=== PATIENT | male | born 1950 | race Caucasian/White ===

== ENCOUNTER → 2016-10-03 | Outpatient (CLI) | payer MEDICARE, MEDICAID ==
[2016-10-03] MEDS: Triamcinolone Acetonide 40 MG/ML 1 ML MDV INJECT STA (11:07)
[2016-10-03] MEDS: Iopamidol 612 MG/ML 100 ML Bottle IVPUSH ONE (11:07)
[2016-10-03] MEDS: Bupivacaine 0.25% 10 ML SDV INJECT STA (11:07)
--- NOTE | 2016-10-05 20:04 | CR ---
EXAMINATION: Fluoro guided left hip injection. HISTORY: Pain FINDINGS: After written informed consent was obtained, under Fluoro guidance, using 1% lidocaine under aseptic conditions a 22-gauge spinal needle was introduced into the right hip joint. Lidocaine flowed easil y suggesting an intra-articular location of the needle. The patient refused contrast for confirmatio n. 40 mg of Kenalog and 3 mL of Marcaine were then injected into the joint. The patient tolerated th e procedure well. IMPRESSION: Successful Fluoro guided left hip joint steroid injection.
== END | disposition home or self-care (01) ==
LOC: MW.DI 10:14
PROVIDERS: ATTEND Orthopaedic Surgery
DX: M25.552 Pain in left hip (principal)
CPT/HCPCS: 20610; 77002; J3301; Q9967

== ENCOUNTER → 2016-10-10 | Outpatient (CLI) | payer MEDICARE, MEDICAID ==
[2016-10-10 15:46] LABS: CHLORIDE,CL 97 mmol/L (98-110); SODIUM,NA 138 mmol/L (136-146)
== END ==
LOC: MW.CHIM 14:57
PROVIDERS: ATTEND Internal Medicine
DX: I10 Essential (primary) hypertension (principal); G62.9 Polyneuropathy, unspecified; T66.XXXD Radiation sickness, unspecified, subsequent encounter; M87.052 Idiopathic aseptic necrosis of left femur; Z85.048 Personal history of other malignant neoplasm of rectum, rectosigmoid junction, and anus
CPT/HCPCS: 36415; 80053; 85025; 99214

== ENCOUNTER 2017-10-16 06:57 | Day surgery (SDC) | payer MEDICAID, MEDICARE ==
[2017-10-16] MEDS ORDERED: Bupivacaine 25%/EPINEPHrine/PF 30 ML ONE (07:29)
[2017-10-16] MEDS ORDERED: Propofol 200 MG/20 ML SDV ONE (07:45)
[2017-10-16] MEDS ORDERED: fentaNYL 100 MCG/2 ML SDV ONE (07:45)
[2017-10-16] MEDS ORDERED: Midazolam 1 MG/ML 2 ML SDV ONE (07:45)
[2017-10-16] MEDS ORDERED: ceFAZolin/Dextrose,Iso-Osmotic 2 GM/50 ML Duplex Bag IV ONE (07:45)
[2017-10-16] MEDS ORDERED: Lactated Ringers 1,000 ML IV SCH (08:00)
[2017-10-16] MEDS ORDERED: Bupivacaine 0.25%/EPINEPHrine 1:200,000 10 ML SDV INJECT ONE (08:00)
[2017-10-16] MEDS ORDERED: ceFAZolin 2 GM in Premix Bag 1 BAG IV ONE (08:00)
--- NOTE | 2017-10-16 08:35 | PCM.PREANE ---
Preanesthetic Assessment - Anesthesia/Transfusion/Family Hx Anesthesia History: Prior Anesthesia Without Reaction Family History of Anesthesia Reaction: No Transfusion History: Prior Transfusion Without Reaction - Review of Systems Other: Reports: None - Physical Assessment NPO Status Date: 10/15/17 NPO Status Time: 21:00 O2 Sat by Pulse Oximetry: 95 Respiratory Rate: 18 Vital Signs: Last Vital Signs Temp 36.7 C 10/16/17 07:39 Pulse 67 10/16/17 07:39 Resp 18 10/16/17 07:39 BP 137/95 H 10/16/17 07:39 Pulse Ox 95 10/16/17 07:39 Height: 6 ft Weight: 92.533 kg ASA Class: 3 Mental Status: Alert & Oriented x3 Airway Class: Mallampati = 2 Dentition: Reports: Broken Tooth/Teeth, Missing Tooth/Teeth Thyro-Mental Finger Breadths: 3 Mouth Opening Finger Breadths: 3 ROM/Head Extension: Full - Allergies Allergies/Adverse Reactions: Allergies Allergy/AdvReac Type Severity Reaction Status Date / Time No Known Allergies Allergy Verified 10/11/17 07:22 - Acknowledgements Anesthesia Type Planned: General Anesthesia Pt an Appropriate Candidate for the Planned Anesthesia: Yes Alternatives and Risks of Anesthesia Discussed w Pt/Guardian: Yes Pt/Guardian Understands and Agrees with Anesthesia Plan: Yes PreAnesthesia Questionnaire - Past Health History Medical/Surgical History: Denies Medical/Surgical History HEENT History: Reports: Cataract Other HEENT History: uses reading glasses Cardiovascular History: Reports: None Other Cardiovascular History: irregular heartbeat- EKG shows ventricular bigeminy Respiratory History: Reports: None Gastrointestinal History: Reports: Other (See Below) Other Gastrointestinal History: hx of rectal cancer Genitourinary History: Reports: None Musculoskeletal History: Reports: Fracture Other Musculoskeletal History: hx of fx right hip, avascular necrosis of left femoral head, low back pain, Right total hip replacement Neurological History: Reports: None Psychiatric History: Reports: None Endocrine/Metabolic History: Reports: None Hematologic History: Reports: Blood Transfusion(s) Immunologic History: Reports: None Oncologic (Cancer) History: Reports: Colon Dermatologic History: Reports: None - Past Surgical History Head Surgeries/Procedures: Reports: None HEENT Surgical History: Reports: Cataract Surgery, Tonsillectomy Cardiovascular Surgical History: Reports: None Respiratory Surgical History: Reports: None GI Surgical History: Reports: Colon, Colonoscopy, Colostomy Other GI Surgeries/Procedures: Colon Resection Male Surgical History: Reports: None Endocrine Surgical History: Reports: None Neurological Surgical History: Reports: None Musculoskeletal Surgical History: Reports: Hip Replacement Other Musculoskeletal Surgeries/Procedures:: right LIBIA Oncologic Surgical History: Reports: Other (See Below) Other Oncologic Surgeries/Procedures: Colon resection with Colostomy, Port a Cath placed and removed Dermatological Surgical History: Reports: None - SUBSTANCE USE Smoking Status *Q: Former Smoker Tobacco Use Within Last Twelve Months: No Recreational Drug Use History: No Recreational Drug Type: Reports: Marijuana/Hashish - HOME MEDS Home Medications: Home Meds Hydrocodone/Acetaminophen [Hydrocodon-Acetaminophen 5-325] 1 - 2 tab PO ASDIRECTED PRN 03/14/16 [History] - CURRENT (IN HOUSE) MEDS Current Meds: Current Medications Lactated Ringer's (Ringers, Lactated) 1,000 mls @ 125 mls/hr IV ASDIRECTED ALEC Last Admin: 10/16/17 07:25 Dose: 125 mls/hr Discontinued Medications Bupivacaine HCl/Epinephrine Bitart (Marcaine 0.25%/Epinephrine 1:200,000) 10 ml INJECT ONETIME ONE Stop: 10/16/17 08:01 Cefazolin Sodium/Dextrose (Ancef) Confirm Administered Dose 2 gm IV .STK-MED ONE Stop: 10/16/17 07:46 Fentanyl (Sublimaze) Confirm Administered Dose 100 mcg .ROUTE .STK-MED ONE Stop: 10/16/17 07:46 Cefazolin Sodium/Dextrose 2 gm (/ Premix) 50 mls @ 100 mls/hr IV ONETIME ONE Stop: 10/16/17 08:29 Bupivacaine HCl/Epinephrine Bitart (Sensorc Mpf 0.25%-Epi [id number]) Confirm Administered Dose 30 mls @ as directed .ROUTE .STK-MED ONE Stop: 10/16/17 07:30 Midazolam HCl (Versed 1 Mg/Ml) Confirm Administered Dose 2 mg .ROUTE .STK-MED ONE Stop: 10/16/17 07:46 Propofol (Diprivan 20 Ml) Confirm Administered Dose 200 mg .ROUTE .STK-MED ONE Stop: 10/16/17 07:46
[2017-10-16] MEDS ORDERED: Ketorolac 30 MG/ML SDV ONE (08:49)
--- NOTE | 2017-10-16 09:39 | PCM.POSTAN ---
POST ANESTHESIA ASSESSMENT - MENTAL STATUS Mental Status: Alert, Oriented - RESPIRATORY Respiratory Status: Respiratory Rate WNL, Airway Patent, O2 Saturation Stable - CARDIOVASCULAR CV Status: Pulse Rate WNL, Blood Pressure Stable - GASTROINTESTINAL GI Status: No Symptoms - POST OP HYDRATION Hydration Status: Adequate & Stable
--- NOTE | 2017-10-16 10:30 | PCM48HPAN ---
Post Anesthesia Note - EVALUATION WITHIN 48HRS OF ANESTHETIC Vital Signs in Normal Range: Yes Patient Participated in Evaluation: Yes Respiratory Function Stable: Yes Airway Patent: Yes Cardiovascular Function Stable: Yes Hydration Status Stable: Yes Pain Control Satisfactory: Yes Nausea and Vomiting Control Satisfactory: Yes Mental Status Recovered: Yes Resp Rate: 18 - COMMENTS/OBSERVATIONS Free Text/Narrative:: no anesthesia problems
[2017-10-16 13:02] VITALS: BP 107/81
--- NOTE | 2017-10-16 16:14 | PCM.OPNOTE ---
- General Post-Op/Procedure Note Date of Surgery/Procedure: 10/16/17 Operative Procedure(s): excision of right index finger ganglion Pre Op Diagnosis: right index finger DIP joint ganglion (mucouos cyst) Post-Op Diagnosis: Same Anesthesia Technique: Local, MAC Primary Surgeon: [facility] Physical Therapist: Sophia Steiner Role of Home Care Physical Therapist: retraction, prepping draping and closure assistance Complications: None Condition: Good Free Text/Narrative:: Intake & Output 10/16/17 10/16/17 10/16/17 07:59 15:59 23:59 Intake Total 1350 Balance 1350
--- NOTE | 2017-10-18 17:13 | OR ---
SURGEON: NOEMI CARLISLE MD DATE OF PROCEDURE: 10/16/2017 PREOPERATIVE DIAGNOSIS: Right index finger ganglion cyst at the DIP joint. POSTOPERATIVE DIAGNOSIS: Right index finger ganglion cyst at the DIP joint. PROCEDURE: Excision of right index finger DIP joint ganglion cyst. BEVERAGE INSPECTION MACHINE TENDER: OFELIA Kowalski ANESTHESIA: Local MAC. REASON BEVERAGE INSPECTION MACHINE TENDER WAS NECESSARY: Retraction, prepping, draping, and closure assistants. INDICATIONS: Mr. Lyle is a 67-year-old gentleman with a right index finger DIP joint ganglion that is quite painful to him. This created a chronic draining sinus tract and he would like it removed. Risks were including, but not limited to, bleeding, infection, damage to underlying or overlying structures, possible need for future interventions, possible scarring. PROCEDURE IN DETAIL: After informed consent was obtained and placed on the chart, the patient was brought to the operating theater and laid in the supine position. After adequate local MAC anesthesia was obtained, the area was prepped draped, and a time-out was completed to confirm side and site. After adequate local anesthesia was injected into the area, 0.25% Marcaine with a digital block. The arm was exsanguinated and tourniquet was insufflated to 200 mmHg. A curvilinear incision over the dorsum involving the chronic draining sinus tract was used to dissect through the skin and directly onto the lateral joint surface. Care was taken to protect the extensor tendon insertion. The dissection was carried down to the DIP joint itself. The cyst was easily located and a small bony joint mouse was located underneath this. Minimal amount of rongeuring was done here to smooth the surface and once this was completed, the joint mouse was removed. The area was copiously irrigated and the skin was closed using a 5-0 chromic in a horizontal mattress fashion. The patient tolerated this well. All counts and needles were correct at the end of the case. The wound was dressed with a Band-Aid. FOLLOWUP INSTRUCTIONS: The patient was given a prescription for pain control. He will see us in 10 to 14 days or sooner if any problems, questions, or concerns. JALEESA / ELKE /[id number]
== END 2017-10-16 10:23 | disposition home or self-care (01) ==
LOC: MW.SDS 06:57
PROVIDERS: ATTEND Plastic Surgery
DX: M67.441 Ganglion, right hand (principal); H26.9 Unspecified cataract; E78.5 Hyperlipidemia, unspecified; I10 Essential (primary) hypertension; G54.1 Lumbosacral plexus disorders; M79.2 Neuralgia and neuritis, unspecified; Z90.89 Acquired absence of other organs; Z98.890 Other specified postprocedural states; Z87.891 Personal history of nicotine dependence; Z85.048 Personal history of other malignant neoplasm of rectum, rectosigmoid junction, and anus; Z96.641 Presence of right artificial hip joint
CPT/HCPCS: 27630; J0690; J1885; J2250; J3010; J7120; 00400; J2704